=== PATIENT | female | born 1995 | race American Indian/Alaskan Native ===

== ENCOUNTER 2017-07-28 13:50 | Emergency (ER) | payer MEDICAID ==
[2017-07-28 14:01] VITALS: BP 114/77
== END 2017-07-28 16:19 ==
LOC: ED 13:50
DX: M79.644 Pain in right finger(s) (principal); Z53.21 Procedure and treatment not carried out due to patient leaving prior to being seen by health care provider

== ENCOUNTER 2021-08-30 20:07 | Emergency (ER) | payer MEDICAID, OTHER ==
[2021-08-30] MEDS ORDERED: DEXAMETHASONE 4 MG TAB PO ONE (21:34)
[2021-08-30] MEDS ORDERED: LIDOCAINE-MPF (1%) 10 MG/1 ML VIAL 5 ML INFILTRATI ONE (21:34)
--- NOTE | 2021-08-30 21:34 | Emergency Department Report ---
ED ENT HPI - General Chief complaint: Sore Throat Stated complaint: THROAT PAINS Time Seen by Provider: 08/30/21 21:33 Source: patient Mode of arrival: Ambulatory Limitations: No Limitations - History of Present Illness Initial comments: Patient presents with a sore throat. She had been having a problem with a sore throat for several days. She been seen at a different hospital and told that she had a peritonsillar abscess based on CT. She follow-up with the ENT and ENT told her that they were not going to drain this. According to her, she was told if you want this drained, "go to another doctor." Patient states that she has been taking the antibiotics and the steroids. She came here because she was not getting any better. There has been no trauma. She has had no change in medication. She states she is not having trouble breathing or swallowing. - Related Data Previous Rx's Medication Instructions Recorded Last Taken Type HYDROcodone/ACETAMINOPHEN [Lortab 10 ml PO HS PRN #100 ml 08/30/21 Unknown Rx 10 mg-300 mg per 15 ML ORAL LIQ] cephALEXin [Keflex] 500 mg PO Q8HR #21 cap 08/30/21 Unknown Rx Allergies Allergy/AdvReac Type Severity Reaction Status Date / Time No Known Allergies Allergy Verified 08/30/21 21:36 ED Dental HPI - General Chief complaint: Sore Throat Stated complaint: THROAT PAINS Time Seen by Provider: 08/30/21 21:33 Source: patient Mode of arrival: Ambulatory Limitations: No Limitations - Related Data Previous Rx's Medication Instructions Recorded Last Taken Type HYDROcodone/ACETAMINOPHEN [Lortab 10 ml PO HS PRN #100 ml 08/30/21 Unknown Rx 10 mg-300 mg per 15 ML ORAL LIQ] cephALEXin [Keflex] 500 mg PO Q8HR #21 cap 08/30/21 Unknown Rx Allergies Allergy/AdvReac Type Severity Reaction Status Date / Time No Known Allergies Allergy Verified 08/30/21 21:36 ED Review of Systems ROS: Stated complaint: THROAT PAINS Other details as noted in HPI Comment: All other systems reviewed and negative Constitutional: fever (Subjective) Eyes: denies: eye pain ENT: as per HPI Respiratory: denies: cough Cardiovascular: denies: chest pain Endocrine: denies: unexplained weight loss Gastrointestinal: denies: abdominal pain Genitourinary: denies: dysuria Musculoskeletal: denies: back pain Skin: denies: rash Neurological: denies: headache Hematological/Lymphatic: denies: easy bruising ED Past Medical Hx - Past Medical History Previous Medical History?: No - Surgical History Past Surgical History?: No - Family History Family history: no significant - Social History Smoking Status: Never Smoker Substance Use Type: None - Medications Home Medications: Home Medications Medication Instructions Recorded Confirmed Last Taken Type HYDROcodone/ACETAMINOPHEN [Lortab 10 ml PO HS PRN #100 ml 08/30/21 Unknown Rx 10 mg-300 mg per 15 ML ORAL LIQ] cephALEXin [Keflex] 500 mg PO Q8HR #21 cap 08/30/21 Unknown Rx ED Physical Exam - General Limitations: No Limitations, Other (Pulse ox noted and normal at 98% during my exam) General appearance: alert, in no apparent distress - Head Head exam: Present: atraumatic, normocephalic - Eye Eye exam: Present: normal appearance, EOMI - ENT ENT exam: Present: normal external ear exam, other (Patient has left peritonsillar swelling with erythema. There is no extension past the midline. Right peritonsillar area is clear. There is no direct pointing.) - Neck Neck exam: Present: normal inspection. Absent: meningismus - Respiratory Respiratory exam: Present: normal lung sounds bilaterally. Absent: respiratory distress - Cardiovascular Cardiovascular Exam: Present: regular rate, normal rhythm - GI/Abdominal GI/Abdominal exam: Present: soft. Absent: tenderness - Extremities Exam Extremities exam: Present: normal capillary refill - Back Exam Back exam: Absent: CVA tenderness (R), CVA tenderness (L) - Neurological Exam Neurological exam: Present: alert, oriented X3, CN II-XII intact, normal gait - Psychiatric Psychiatric exam: Present: normal affect, normal mood - Skin Skin exam: Present: warm, dry ED Course - Reevaluation(s) Reevaluation #1: 08/30/21 21:33 Rocephin and Hurricaine spray were ordered. Old records noted Reevaluation #2: 08/31/21 00:42 We attempted needle aspiration. No purulent material was aspirated. Patient could not get into my chart to review the CT. We requested old records which were never provided. ED Medical Decision Making - Medical Decision Making Patient presents with reports of a peritonsillar abscess based on CT. She states that ENT did not want to drain this. She was treated with clindamycin. Whether Rocephin may have been a better choice is unknown. Patient was given Rocephin here. We did attempt needle aspiration but no purulent material was aspirated. At this time, there is no evidence of airway compromise. Patient was referred to a different ENT with outpatient instructions. We discussed return precautions for airway issues. Critical Care Time: No Critical care attestation.: If time is entered above; I have spent that time in minutes in the direct care of this critically ill patient, excluding procedure time. ED Disposition Clinical Impression: Peritonsillar cellulitis Disposition: HOME / SELF CARE / HOMELESS Is pt being admited?: No Condition: Stable Instructions: Peritonsillar Cellulitis Additional Instructions: Use salt water gargles. Continue to take the clindamycin steroids. Drink plenty water. Return for problems. Follow-up with your regular doctor for recheck and further management. Follow-up with ENT as referred. Prescriptions: cephALEXin [Keflex] 500 mg PO Q8HR #21 cap HYDROcodone/ACETAMINOPHEN [Lortab 10 mg-300 mg per 15 ML ORAL LIQ] 10 ml PO HS PRN #100 ml PRN Reason: Pain, Moderate (4-6) Referrals: PRIMARY MD KUSH [Primary Care Provider] - 3-5 Days BRODIE LEVINE MD [Staff Physician] - 3-5 Days
[2021-08-30] MEDS ORDERED: LIDOCAINE VISCOUS 2% 15 ML ORAL LIQD MM NR (21:45)
[2021-08-30] MEDS ORDERED: BENZOCAINE 20% TOP SPRAY 0.5 ML UNIT DOSE MM NR (22:00)
[2021-08-30] MEDS ORDERED: HYDROcodone/Acetaminophen 7.5-325MG-15ML ORAL LIQD PO ONE (22:59)
== END 2021-08-30 23:30 | disposition home or self-care (01) ==
LOC: ED 20:07
DX: J36 Peritonsillar abscess (principal)
CPT/HCPCS: 42700; 96372; 99282; J0696; J8540